=== PATIENT | female | born 1995 | race Caucasian/White ===

== ENCOUNTER 2021-01-19 09:00 | Emergency (ER) | payer OTHER ==
[~2021-01-19] VITALS: Ht 160 cm; Wt 68.9 kg
[2021-01-19] MEDS ORDERED: PRENATAL + DHA1 EAC1 PO (09:14)
[2021-01-19] MEDS ORDERED: FOLIC ACID0.8 M1 PO (09:14)
== END 2021-01-19 12:31 | disposition home or self-care (01) ==
LOC: ER 09:00
DX: O26.891 Other specified pregnancy related conditions, first trimester (principal); M54.5 Low back pain; Z34.01 Encounter for supervision of normal first pregnancy, first trimester